=== PATIENT | male | born 1940 | race Caucasian/White ===

== ENCOUNTER 2017-04-27 12:50 | Outpatient (CLI) | payer MEDICARE, BC | END 2017-04-27 12:51 | disposition home or self-care (01) | LOC: LAB.F 12:50 | PROVIDERS: ATTEND Family Medicine | DX: E78.2 Mixed hyperlipidemia (principal); E03.9 Hypothyroidism, unspecified; R73.01 Impaired fasting glucose; R94.5 Abnormal results of liver function studies; E55.9 Vitamin D deficiency, unspecified | CPT/HCPCS: 36415; 84443 ==

== ENCOUNTER 2017-07-27 09:48 | Outpatient (CLI) | payer MEDICARE, BC ==
[2017-07-27 17:40] LABS: BILIRUBIN,URINE NEGATIVE (NEGATIVE)
[2017-07-27 17:44] LABS: BASOPHILS # (AUTO) 0.1 10^3/uL (0.0-0.1); BASOPHILS % (AUTO) 1.3 %; EOSINOPHILS # (AUTO) 0.2 10^3/uL (0.0-0.7); EOSINOPHILS % (AUTO) 3.2 %; HCT - HEMATOCRIT 43.7 % (42.0-52.0); HGB - HEMOGLOBIN 14.8 g/dL (14.0-18.0); LYMPHOCYTES # (AUTO) 2.4 10^3/uL (1.5-3.5); MEAN CORPUSCULAR HEMOGLOBIN 31.8 pg (27.0-31.0); MEAN CORPUSCULAR HGB CONC 33.9 g/dL (32.0-36.0); MEAN CORPUSCULAR VOLUME 93.9 fL (80.0-94.0); MEAN PLATELET VOLUME 9.9 fL (7.4-11.4); MONOCYTES # (AUTO) 0.5 10^3/uL (0.0-1.0); MONOCYTES % (AUTO) 9.8 %; NEUTROPHILS # (AUTO) 2.4 10^3/uL (1.5-6.6); NEUTROPHILS % (AUTO) 42.7 %; NUCLEATED RED BLOOD CELLS AUTO 0.1 /100WBC; RED BLOOD COUNT 4.65 10^6/uL (4.70-6.10); RED CELL DISTRIBUTION WIDTH 13.3 % (12.0-15.0); UNCORRECTED WHITE BLOOD COUNT 5.6 x10^3/uL; WHITE BLOOD COUNT 5.6 x10^3/uL (4.8-10.8)
[2017-07-27 17:45] LABS: UA CHARGE (STRIP ONLY) YES; UR CULTURE IF IND NOT INDICATED
[2017-07-27 18:20] LABS: CALCIUM 9.3 mg/dL (8.5-10.3); CREATININE 1.1 mg/dL (0.6-1.2)
[2017-07-27 18:34] LABS: HEMOGLOBIN A1C 0.58 g/dL
== END 2017-07-27 09:49 | disposition home or self-care (01) ==
LOC: LAB.F 09:48
PROVIDERS: ATTEND Orthopaedic Surgery
DX: Z01.812 Encounter for preprocedural laboratory examination (principal); N39.0 Urinary tract infection, site not specified; M25.562 Pain in left knee; R73.9 Hyperglycemia, unspecified; D64.9 Anemia, unspecified; M25.50 Pain in unspecified joint
CPT/HCPCS: 36415; 80048; 81001; 81003; 83036; 84466; 85025; 86708; 86803; 87086

== ENCOUNTER 2017-10-25 11:08 | Outpatient (CLI) | payer MEDICARE, BC | END 2017-10-25 11:09 | disposition home or self-care (01) | LOC: SC 11:08 | PROVIDERS: ATTEND Nurse Practitioner Family | DX: G47.33 Obstructive sleep apnea (adult) (pediatric) (principal); G47.00 Insomnia, unspecified | CPT/HCPCS: 99214; G0463; 99212 ==

== ENCOUNTER 2018-08-02 07:46 | Outpatient (CLI) | payer MEDICARE, BC ==
[2018-08-02 10:34] LABS: BUN - BLOOD UREA NITROGEN 21 mg/dL (6-20); CALCIUM 9.6 mg/dL (8.5-10.3); CARBON DIOXIDE - CO2 28 mmol/L (21-32); CHLORIDE 105 mmol/L (101-111); CHOLESTEROL 169 mg/dL; CREATININE 1.2 mg/dL (0.6-1.2); GFR - MDRD 59 (>89); GLUCOSE 109 mg/dL (70-100); SODIUM 141 mmol/L (135-145); VLDL CHOLESTEROL 19 mg/dL
[2018-08-02 11:20] LABS: CHOL/HDL RATIO 3.8 (<5.0); HDL CHOLESTEROL 45 mg/dL; LDL CHOLESTEROL,CALCULATED 105 mg/dL; LDL/HDL RATIO 2.3 (<3.6)
== END 2018-08-02 07:47 | disposition home or self-care (01) ==
LOC: LAB.F 07:46
PROVIDERS: ATTEND Internal Medicine
DX: I48.91 Unspecified atrial fibrillation (principal); E78.2 Mixed hyperlipidemia; E03.9 Hypothyroidism, unspecified
CPT/HCPCS: 36415; 80048; 80061; 83721; 84443

== ENCOUNTER 2018-11-20 13:04 | Outpatient (CLI) | payer MEDICARE, BC | END 2018-11-20 13:05 | disposition home or self-care (01) | LOC: SC 13:04 | PROVIDERS: ATTEND Nurse Practitioner Family | DX: G47.33 Obstructive sleep apnea (adult) (pediatric) (principal); G47.00 Insomnia, unspecified; R53.83 Other fatigue | CPT/HCPCS: 99214; G0463; 99212 ==

== ENCOUNTER 2019-01-22 13:16 | Outpatient (CLI) | payer MEDICARE, BC | END 2019-01-22 13:17 | disposition home or self-care (01) | LOC: SC 13:16 | PROVIDERS: ATTEND Nurse Practitioner Family | DX: G47.33 Obstructive sleep apnea (adult) (pediatric) (principal); R53.83 Other fatigue | CPT/HCPCS: 99214; G0463; 99212 ==

== ENCOUNTER 2019-04-11 08:54 | Outpatient (CLI) | payer MEDICARE, BC ==
[2019-04-11 11:06] LABS: BASOPHILS # (AUTO) 0.1 10^3/uL (0.0-0.1); BASOPHILS % (AUTO) 1.6 %; EOSINOPHILS # (AUTO) 0.3 10^3/uL (0.0-0.7); HGB - HEMOGLOBIN 15.7 g/dL (14.0-18.0); LYMPHOCYTES # (AUTO) 2.2 10^3/uL (1.5-3.5); LYMPHOCYTES % (AUTO) 41.2 %; MEAN CORPUSCULAR HEMOGLOBIN 31.3 pg (27.0-31.0); MEAN CORPUSCULAR VOLUME 92.1 fL (80.0-94.0); MEAN PLATELET VOLUME 9.6 fL (7.4-11.4); MONOCYTES # (AUTO) 0.5 10^3/uL (0.0-1.0); NEUTROPHILS # (AUTO) 2.3 10^3/uL (1.5-6.6); NEUTROPHILS % (AUTO) 43.2 %; PLT - PLATELET COUNT 211 10^3/uL (130-450); RED BLOOD COUNT 5.01 10^6/uL (4.70-6.10); RED CELL DISTRIBUTION WIDTH 13.2 % (12.0-15.0); WHITE BLOOD COUNT 5.3 x10^3/uL (4.8-10.8)
[2019-04-11 11:08] LABS: ALBUMIN 4.5 g/dL (3.2-5.5); ALBUMIN/GLOBULIN RATIO 1.6 (1.0-2.2); ALKALINE PHOSPHATASE 73 IU/L (42-121); ALT ALANINE AMINOTRANSFERASE 45 IU/L (10-60); AST ASPARTATE AMINOTRANSFERASE 35 IU/L (10-42); BILIRUBIN,TOTAL 0.9 mg/dL (0.2-1.0); BUN - BLOOD UREA NITROGEN 21 mg/dL (6-20); CALCIUM 9.6 mg/dL (8.5-10.3); CARBON DIOXIDE - CO2 24 mmol/L (21-32); CHLORIDE 103 mmol/L (101-111); CHOL/HDL RATIO 3.8 (<5.0); CHOLESTEROL 181 mg/dL; CREATININE 1.2 mg/dL (0.6-1.2); GFR - MDRD 59 (>89); GLUCOSE 127 mg/dL (70-100); HDL CHOLESTEROL 48 mg/dL; LDL CHOLESTEROL,CALCULATED 118 mg/dL; LDL/HDL RATIO 2.5 (<3.6); SODIUM 138 mmol/L (135-145); TOTAL PROTEIN 7.4 g/dL (6.7-8.2); VLDL CHOLESTEROL 15 mg/dL
== END 2019-04-11 08:55 | disposition home or self-care (01) ==
LOC: LAB.F 08:54
PROVIDERS: ATTEND Internal Medicine
DX: R53.83 Other fatigue (principal); E78.2 Mixed hyperlipidemia
CPT/HCPCS: 36415; 80053; 80061; 83721; 84443; 85025

== ENCOUNTER 2019-04-26 13:20 | Outpatient (CLI) | payer MEDICARE, BC ==
--- NOTE | 2019-04-26 14:09 | XRAY Report ---
Reason: PAIN IN LEFT SHOULDER Procedure Date: 04/26/2019 Accession Number: [id number] / [id number] Procedure: XR - Shoulder 2 View LT CPT Code: FULL RESULT: EXAM: LEFT SHOULDER RADIOGRAPHY EXAM DATE: 04/26/2019 01:40 PM. CLINICAL HISTORY: PAIN IN LEFT SHOULDER. COMPARISON: None. TECHNIQUE: 3 views. FINDINGS: Bones: Normal. No fracture or bone lesion. Joints: Unremarkable glenohumeral joint. Mild acromioclavicular joint osteoarthritis. Soft tissues: The visualized hemithorax is unremarkable. No soft tissue swelling. IMPRESSION: No acute abnormality. RADIA
== END 2019-04-26 13:21 | disposition home or self-care (01) ==
LOC: DI 13:20
PROVIDERS: ATTEND Internal Medicine
DX: M19.012 Primary osteoarthritis, left shoulder (principal)

== ENCOUNTER 2019-06-19 10:44 | Outpatient (CLI) | payer MEDICARE, BC ==
[2019-06-19 12:17] VITALS: BP 120/70
--- NOTE | 2019-06-19 12:17 | CONSULTATION NOTE ---
Information from patient questionnaire entered by Amirah Stoddard. I have reviewed and concur with the information entered by Amirah Stoddard. This document represents the service I personally performed and the decisions made by me, Natasha Bell, RN, MSN, CHEF FREN[place]. History of Present Illness Previous diagnosis: Severe, Obstructive Sleep Apnea-Hypopnea Syndrome AHI: 51 Reason for CPAP/BiPAP follow up: first compliance after device update Equipment type: CPAP Equipment obtained from: [email or web address] [facility] Mask style: Full face (changed to full face because was opening mouth during sleep. The new mask working well once found right cushion) Mask brand: Respironics Backup mask available: Yes Last cushion change: none since set up CPAP Compliance Data - Data Reviewed with Patient Average duration of nightly device use: 7.45 Compliance rate %: 100 Current pressure setting (cmH2O): 8-10 Humidity settin Heated hose settin Average residual AHI: 3.2 Average large leak: 11 mins 4 secs Subjective Patient concerns: reports: mask discomfort (He thinks it is pulled too tight. ), air blowing in eyes (intermittent initially until he gets the fit correct. ), other (The mask cushion moves with exhale intermittently). denies: aerophagia, mask leak noise, condensation in mask/hose, nasal congestion, dry mouth, nose, throat (with new full face mask, he is able to keep his mouth closed with resolution of dryness symptoms. ), epistaxis Observed to snore while using device: No On therapy, patient: reports: sleeping better, being more awake and alert during the day, more rested overall, other. denies: awakening more refreshed, drowsiness while driving Initial [place] Sleepiness Scale score: 10 Current [place] Sleepiness Scale score: 9 Review of Systems Review of systems same as previous: No Cardiovascular: reports: irregular heart rate or pulse Urinary: reports: impotence Neurological: reports: fainting or unconsciousness Ear/Nose/Throat: reports: dry mouth/throat (resolved), wisdom teeth removed Musculoskeletal: reports: joint pain, neck pain, back pain Allergies and Home Medications Known drug allergies: No Home medication list reviewed: Yes Allergy and home medication list: Zoloft 50mg tab one daily Levothyroxine Sodium 75mcg tab one daily Meloxicam 15mg tab one daily as needed Gabapentin 300mg cap two twice daily Eliquis 5mg tab one twice daily Calcium Citrate, Vit D, Magnesium, Zinc Tab one daily Vitamin D 1000IU tab one daily Fish Oil Concentrate 1000mg cap one twice daily Glucosamine Complex Tab daily as directed Red Yeast Rice Extract 600mg cap one twice daily Ocuvite-Lutein 1 cap daily Niaspan ER 500mg tab one daily in the pm Omeprazole DR 20mg cap one daily Vitamin C 500mg tab one daily Probiotic Cap one daily or as directed Physical Exam Blood Pressure: 120/70 Heart Rate: 60 O2 Saturation: 98 Height: 5 ft 10 in Weight (kg): 103.419 kg (lost 12 pounds ) Body Mass Index: 32.7 Impression and Plan 1. Obstructive Sleep Apnea-Hypopnea Syndrome, severe, with good treatment compliance and good apnea control. On CPAP therapy, there is improved sleep quality and continues to feel more rested overall. For his concerns about his mask movement during sleep,waking him, I advised changing his pressure from an autoCPAP mode to the 90% pressure used of [id number]. He also reports that the current ramp pressure is too low so I will adjust it to 6cmH20. I also showed him how he could adjust it further if needed on as shown on sample device. If the pressure change is uncomfortable then he is to contact me for further adjustment. To reduce mask salamanca from overtightening and improve mask comfort, he is to change the cushion monthly. The supply replacment list given for reference. Since he is hoping to lose more weight, I explained how continued significant weight loss could reduce his CPAP pressure requirements and symptoms to report for adjustment. I also showed him the BNI chart and goal for reducing his BMI and health benefit. The goal is to lose waist fat to reduce health risks. Patient's apnea severity and rationale for treatment to reduce apnea, improve sleep quality and reduce cardiovascular and cerebrovascular events was reviewed. I also reviewed the benefit of consistent device use of CPAP for arrhythmia, gastric reflux, depression/anxiety. Plan Change auto CPAP pressure at 10 cm H2O. Notify me if snoring with the mask or feeling that the pressure is too much or too little. Attempt to lose weight. Adjust ramp change mask cushion Return for follow-up in one year, or sooner if concerns arise. I spent 100% of this 38 minute visit face to face with the patient with greater than 50% of this was spent time counseling the patient and coordination of care.
== END 2019-06-19 10:45 | disposition home or self-care (01) ==
LOC: SC 10:44
PROVIDERS: ATTEND Nurse Practitioner Family
DX: G47.33 Obstructive sleep apnea (adult) (pediatric) (principal)
CPT/HCPCS: 99214; G0463; 99212

== ENCOUNTER 2020-01-06 08:14 | Outpatient (CLI) | payer MEDICARE, BC ==
[2020-01-06 10:16] LABS: BASOPHILS # (AUTO) 0.1 10^3/uL (0.0-0.1); BASOPHILS % (AUTO) 1.5 %; EOSINOPHILS # (AUTO) 0.2 10^3/uL (0.0-0.7); EOSINOPHILS % (AUTO) 3.7 %; HGB - HEMOGLOBIN 14.8 g/dL (14.0-18.0); LYMPHOCYTES % (AUTO) 36.9 %; MEAN CORPUSCULAR HEMOGLOBIN 31.7 pg (27.0-31.0); MEAN CORPUSCULAR HGB CONC 34.2 g/dL (32.0-36.0); MEAN CORPUSCULAR VOLUME 92.7 fL (80.0-94.0); MEAN PLATELET VOLUME 11.2 fL (7.4-11.4); MONOCYTES # (AUTO) 0.6 10^3/uL (0.0-1.0); MONOCYTES % (AUTO) 10.6 %; NEUTROPHILS # (AUTO) 2.6 10^3/uL (1.5-6.6); NEUTROPHILS % (AUTO) 47.1 %; PLT - PLATELET COUNT 225 10^3/uL (130-450); RED BLOOD COUNT 4.67 10^6/uL (4.70-6.10); RED CELL DISTRIBUTION WIDTH 12.7 % (12.0-15.0); WHITE BLOOD COUNT 5.5 x10^3/uL (4.8-10.8)
[2020-01-06 10:53] LABS: ALBUMIN 4.3 g/dL (3.2-5.5); ALBUMIN/GLOBULIN RATIO 1.6 (1.0-2.2); ALKALINE PHOSPHATASE 59 IU/L (42-121); ALT ALANINE AMINOTRANSFERASE 47 IU/L (10-60); AST ASPARTATE AMINOTRANSFERASE 30 IU/L (10-42); BILIRUBIN,TOTAL 0.7 mg/dL (0.2-1.0); BUN - BLOOD UREA NITROGEN 25 mg/dL (6-20); CALCIUM 9.2 mg/dL (8.5-10.3); CARBON DIOXIDE - CO2 28 mmol/L (21-32); CHLORIDE 104 mmol/L (101-111); CHOL/HDL RATIO 4.1 (<5.0); CHOLESTEROL 185 mg/dL; CREATININE 1.1 mg/dL (0.6-1.2); GFR - MDRD 65 (>89); GLUCOSE 113 mg/dL (70-100); HDL CHOLESTEROL 45 mg/dL; LDL CHOLESTEROL,CALCULATED 121 mg/dL; LDL/HDL RATIO 2.7 (<3.6); SODIUM 138 mmol/L (135-145); VLDL CHOLESTEROL 19 mg/dL
== END 2020-01-06 08:15 | disposition home or self-care (01) ==
LOC: LAB.S 08:14
PROVIDERS: ATTEND Internal Medicine
DX: R53.83 Other fatigue (principal); E78.2 Mixed hyperlipidemia
CPT/HCPCS: 36415; 80053; 80061; 83721; 84443; 85025

== ENCOUNTER 2020-09-04 07:15 | Outpatient (CLI) | payer MEDICARE, BC ==
[2020-09-04 15:41] LABS: BASOPHILS # (AUTO) 0.1 10^3/uL (0.0-0.1); BASOPHILS % (AUTO) 1.1 %; EOSINOPHILS # (AUTO) 0.2 10^3/uL (0.0-0.7); EOSINOPHILS % (AUTO) 2.2 %; HGB - HEMOGLOBIN 15.7 g/dL (14.0-18.0); LYMPHOCYTES # (AUTO) 2.9 10^3/uL (1.5-3.5); LYMPHOCYTES % (AUTO) 35.9 %; MEAN CORPUSCULAR HEMOGLOBIN 30.8 pg (27.0-31.0); MEAN CORPUSCULAR HGB CONC 33.1 g/dL (32.0-36.0); MEAN CORPUSCULAR VOLUME 93.3 fL (80.0-94.0); MEAN PLATELET VOLUME 12.1 fL (7.4-11.4); MONOCYTES # (AUTO) 0.7 10^3/uL (0.0-1.0); MONOCYTES % (AUTO) 8.1 %; NEUTROPHILS # (AUTO) 4.3 10^3/uL (1.5-6.6); NEUTROPHILS % (AUTO) 52.5 %; PLT - PLATELET COUNT 228 10^3/uL (130-450); RED BLOOD COUNT 5.09 10^6/uL (4.70-6.10); RED CELL DISTRIBUTION WIDTH 12.8 % (12.0-15.0); WHITE BLOOD COUNT 8.2 x10^3/uL (4.8-10.8)
[2020-09-04 15:55] LABS: ALBUMIN 4.7 g/dL (3.2-5.5); ALBUMIN/GLOBULIN RATIO 1.5 (1.0-2.2); ALKALINE PHOSPHATASE 72 IU/L (42-121); ALT ALANINE AMINOTRANSFERASE 62 IU/L (10-60); AST ASPARTATE AMINOTRANSFERASE 35 IU/L (10-42); BILIRUBIN,TOTAL 0.8 mg/dL (0.2-1.0); BUN - BLOOD UREA NITROGEN 25 mg/dL (6-20); CALCIUM 9.8 mg/dL (8.5-10.3); CARBON DIOXIDE - CO2 25 mmol/L (21-32); CHLORIDE 102 mmol/L (101-111); CHOL/HDL RATIO 4.4 (<5.0); CHOLESTEROL 211 mg/dL; CREATININE 1.1 mg/dL (0.6-1.2); GLUCOSE 123 mg/dL (70-100); HDL CHOLESTEROL 48 mg/dL; LDL CHOLESTEROL,CALCULATED 139 mg/dL; LDL/HDL RATIO 2.9 (<3.6); SODIUM 138 mmol/L (135-145); TOTAL PROTEIN 7.8 g/dL (6.7-8.2); VLDL CHOLESTEROL 24 mg/dL
== END 2020-09-04 07:16 | disposition home or self-care (01) ==
LOC: LAB.S 07:15
PROVIDERS: ATTEND Internal Medicine
DX: R53.83 Other fatigue (principal); E78.2 Mixed hyperlipidemia
CPT/HCPCS: 36415; 80053; 80061; 83721; 84443; 85025

== ENCOUNTER 2020-09-22 13:09 | Outpatient (CLI) | payer MEDICARE, BC ==
--- NOTE | 2020-09-22 14:01 | SLEEP CARE CONSULTATION ---
Information from patient questionnaire entered by Jenniffer Rod. I have reviewed and concur with the information entered by Jenniffer Rod. This document represents the service I personally performed and the decisions made by me, Lisette Baer ARNP. History of Present Illness Service Date and Time: 09/22/2020 1309 Previous diagnosis: Severe, Obstructive Sleep Apnea-Hypopnea Syndrome AHI: 51 (in 2003) Reason for follow up: three month Equipment type: CPAP Equipment obtained from: [employer] (getting supplies as needed) Mask style: Full face Backup mask available: Yes (other mask) Last cushion change: June, changed to new DME and supplies on the way Prior sleep studies: Yes Year and Where: 2003 - [facility] in [place], [place] Type of Sleep Study: Polysomnography HPI additional information: MALLIKA MO was diagnosed to have severe, AHI 51, obstructive sleep apnea- hypopnea syndrome and returned today for CPAP therapy three month follow-up. He is feeling sluggish and more tired. His PCP encouraged him to make sure his machine, etc was working well since his blood work came back with normal values. Sleep Study - Results Prior sleep studies: Yes Year and Where: 2003 - [facility] in [place], [place] CPAP Compliance Data - Data Reviewed with Patient Average duration of nightly device use: 7 hours 52 minutes Compliance rate %: 98.9 Current pressure setting (cmH2O): 10-12 Humidity settin Heated hose settin Average residual AHI: 1.7 Average large leak: 3 minutes 43 seconds Subjective Patient concerns: reports: mask discomfort (just when it leaks), mask leak noise (only when on side), condensation in mask/hose (in mask), dry mouth, nose, throat (most of the time). denies: aerophagia, air blowing in eyes, nasal congestion, epistaxis, other Observed to snore while using device: No Current pressure setting perceived as: comfortable On therapy, patient: reports: sleeping better, awakening more refreshed, being more awake and alert during the day, more rested overall. denies: drowsiness while driving Initial [place] Sleepiness Scale score: 10 (in 2014) Current [place] Sleepiness Scale score: 3 Allergies and Home Medications Drug allergies reviewed: Yes (NKDA) Home medication list reviewed: Yes (no changes) Review of Systems Review of systems same as previous: No (increasing fatigue) Physical Exam Heart Rate: 63 O2 Saturation: 97 Height: 5 ft 10 in Weight: 234 lb Body Mass Index: 33.5 BMI Classification: Obese Impression and Plan 1. Obstructive Sleep Apnea-Hypopnea Syndrome, severe, with good treatment compliance and good apnea control. On CPAP therapy, the patient has better sleep quality and is more rested overall. He has had more fatigue lately but his CPAP therapy appears to be being effective. I do not feel this is the cause of his sluggishness. He was encouraged to follow up with his PCP on the fatigue issue. He has been noting some condensation in the mask recently. His humidity setting is at 2 and the heated hose at 2. I encouraged him to increase the humidity to 4 and heated hose to 3 to try to decrease condensation and decrease oral dryness. Oral dryness can be reduced by adjusting humidity setting higher or heated hose lower or by adjusting both settings. He would also like to try a different mask as he feels the full face mask his is using is not comfortable. He would like to try the mask over the nose and use a chin strap to keep mouth closed. I will write for a mask refitting for the Dream Wisp mask. He will contact the office if this does not work out and he wants to go back to a full face mask. Patient's apnea severity and rationale for treatment to reduce apnea, improve sleep quality and reduce cardiovascular and cerebrovascular events was reviewed. I also reviewed the benefit of consistent device use of CPAP for hypertension. * Continue autoCPAP pressure at 10-12 cmH2O * Mask refitting to try Dream Wisp nasal mask * Notify me if snoring with mask or feeling that the pressure is too much or too little * Follow up with PCP for fatigue * Attempt to lose weight * Call this office if any problems using CPAP * Return for follow up in 1 year, or sooner if concerns arise Counseling Topics: Spare mask Visit Type: In Office Time Spent with Patient (minutes): 20 Provider Statement: I spent 100% of the Face to Face Visit with the patient with greater than 50% spent counseling the patient and coordination of care.
== END 2020-09-22 13:10 | disposition home or self-care (01) ==
LOC: SC 13:09
PROVIDERS: ATTEND Nurse Practitioner Family
DX: G47.33 Obstructive sleep apnea (adult) (pediatric) (principal); E66.9 Obesity, unspecified; Z68.33 Body mass index [BMI] 33.0-33.9, adult
CPT/HCPCS: 99213; G0463; 99212

== ENCOUNTER 2021-01-05 07:33 | Outpatient (CLI) | payer MEDICARE, BC | END 2021-01-05 07:34 | disposition home or self-care (01) | LOC: LAB.S 07:33 | PROVIDERS: ATTEND Internal Medicine | DX: R53.83 Other fatigue (principal) | CPT/HCPCS: 36415; 81599; 84402; 84403 ==

== ENCOUNTER 2021-08-10 08:49 | Outpatient (CLI) | payer MEDICARE, BC ==
[2021-08-10 14:54] LABS: BASOPHILS # (AUTO) 0.1 10^3/uL (0.0-0.1); BASOPHILS % (AUTO) 1.3 %; EOSINOPHILS # (AUTO) 0.2 10^3/uL (0.0-0.7); EOSINOPHILS % (AUTO) 2.9 %; HCT - HEMATOCRIT 48.8 % (42.0-52.0); HGB - HEMOGLOBIN 16.5 g/dL (14.0-18.0); LYMPHOCYTES # (AUTO) 2.3 10^3/uL (1.5-3.5); LYMPHOCYTES % (AUTO) 32.7 %; MEAN CORPUSCULAR HEMOGLOBIN 31.5 pg (27.0-31.0); MEAN CORPUSCULAR HGB CONC 33.8 g/dL (32.0-36.0); MEAN CORPUSCULAR VOLUME 93.3 fL (80.0-94.0); MEAN PLATELET VOLUME 11.7 fL (7.4-11.4); MONOCYTES # (AUTO) 0.7 10^3/uL (0.0-1.0); MONOCYTES % (AUTO) 9.7 %; NEUTROPHILS # (AUTO) 3.7 10^3/uL (1.5-6.6); NEUTROPHILS % (AUTO) 53.3 %; PLT - PLATELET COUNT 234 10^3/uL (130-450); RED BLOOD COUNT 5.23 10^6/uL (4.70-6.10); RED CELL DISTRIBUTION WIDTH 13.2 % (12.0-15.0)
[2021-08-10 15:27] LABS: ALBUMIN 4.6 g/dL (3.2-5.5); ALBUMIN/GLOBULIN RATIO 1.6 (1.0-2.2); ALKALINE PHOSPHATASE 66 IU/L (42-121); ALT ALANINE AMINOTRANSFERASE 52 IU/L (10-60); AST ASPARTATE AMINOTRANSFERASE 33 IU/L (10-42); BUN - BLOOD UREA NITROGEN 25 mg/dL (6-20); CALCIUM 9.4 mg/dL (8.5-10.3); CARBON DIOXIDE - CO2 27 mmol/L (21-32); CHLORIDE 102 mmol/L (101-111); CHOL/HDL RATIO 4.6 (<5.0); CHOLESTEROL 212 mg/dL; CREATININE 1.2 mg/dL (0.6-1.2); GFR - MDRD 58 (>89); GLUCOSE 121 mg/dL (70-100); HDL CHOLESTEROL 46 mg/dL; LDL CHOLESTEROL,CALCULATED 133 mg/dL; LDL/HDL RATIO 2.9 (<3.6); POTASSIUM 4.6 mmol/L (3.5-5.0); SODIUM 138 mmol/L (135-145); TOTAL PROTEIN 7.4 g/dL (6.7-8.2); TRIGLYCERIDES 165 mg/dL; VLDL CHOLESTEROL 33 mg/dL
[2021-08-10 15:33] LABS: THYROID STIMULATING HORMONE 3.18 uIU/mL (0.34-5.60)
== END 2021-08-10 08:50 | disposition home or self-care (01) ==
LOC: LAB.S 08:49
PROVIDERS: ATTEND Internal Medicine
DX: Z79.899 Other long term (current) drug therapy (principal); Z12.5 Encounter for screening for malignant neoplasm of prostate; E78.2 Mixed hyperlipidemia; E03.9 Hypothyroidism, unspecified
CPT/HCPCS: 36415; 80053; 80061; 84443; 85025; G0103; 83721; 84153

== ENCOUNTER 2021-10-21 07:08 | Outpatient (CLI) | payer MEDICARE, BC ==
[2021-10-21 15:02] LABS: BASOPHILS # (AUTO) 0.1 10^3/uL (0.0-0.1); BASOPHILS % (AUTO) 1.3 %; EOSINOPHILS # (AUTO) 0.2 10^3/uL (0.0-0.7); EOSINOPHILS % (AUTO) 3.8 %; HCT - HEMATOCRIT 44.6 % (42.0-52.0); HGB - HEMOGLOBIN 15.3 g/dL (14.0-18.0); LYMPHOCYTES # (AUTO) 2.4 10^3/uL (1.5-3.5); LYMPHOCYTES % (AUTO) 37.2 %; MEAN CORPUSCULAR HEMOGLOBIN 31.8 pg (27.0-31.0); MEAN CORPUSCULAR HGB CONC 34.3 g/dL (32.0-36.0); MEAN CORPUSCULAR VOLUME 92.7 fL (80.0-94.0); MEAN PLATELET VOLUME 11.8 fL (7.4-11.4); MONOCYTES # (AUTO) 0.7 10^3/uL (0.0-1.0); MONOCYTES % (AUTO) 10.3 %; NEUTROPHILS % (AUTO) 47.1 %; PLT - PLATELET COUNT 230 10^3/uL (130-450); RED BLOOD COUNT 4.81 10^6/uL (4.70-6.10); RED CELL DISTRIBUTION WIDTH 13.1 % (12.0-15.0); WHITE BLOOD COUNT 6.3 x10^3/uL (4.8-10.8)
[2021-10-21 15:26] LABS: ALBUMIN 4.4 g/dL (3.2-5.5); ALBUMIN/GLOBULIN RATIO 1.7 (1.0-2.2); ALKALINE PHOSPHATASE 66 IU/L (42-121); ALT ALANINE AMINOTRANSFERASE 47 IU/L (10-60); AST ASPARTATE AMINOTRANSFERASE 30 IU/L (10-42); BILIRUBIN,TOTAL 0.7 mg/dL (0.2-1.0); BUN - BLOOD UREA NITROGEN 22 mg/dL (6-20); CALCIUM 9.2 mg/dL (8.5-10.3); CARBON DIOXIDE - CO2 25 mmol/L (21-32); CHLORIDE 102 mmol/L (101-111); CHOL/HDL RATIO 4.2 (<5.0); CHOLESTEROL 183 mg/dL; CREATININE 1.1 mg/dL (0.6-1.2); GFR - MDRD 64 (>89); GLUCOSE 130 mg/dL (70-100); HDL CHOLESTEROL 44 mg/dL; LDL CHOLESTEROL,CALCULATED 112 mg/dL; LDL/HDL RATIO 2.5 (<3.6); POTASSIUM 4.4 mmol/L (3.5-5.0); SODIUM 138 mmol/L (135-145); TRIGLYCERIDES 135 mg/dL; VLDL CHOLESTEROL 27 mg/dL
[2021-10-21 15:33] LABS: THYROID STIMULATING HORMONE 3.93 uIU/mL (0.34-5.60)
== END 2021-10-21 07:09 | disposition home or self-care (01) ==
LOC: LAB.S 07:08
PROVIDERS: ATTEND Internal Medicine
DX: Z79.899 Other long term (current) drug therapy (principal); E78.2 Mixed hyperlipidemia; E03.9 Hypothyroidism, unspecified
CPT/HCPCS: 36415; 80053; 80061; 83721; 84443; 85025

== ENCOUNTER 2022-02-07 08:51 | Outpatient (CLI) | payer MEDICARE, BC ==
[2022-02-07 14:21] LABS: BASOPHILS # (AUTO) 0.1 10^3/uL (0.0-0.1); BASOPHILS % (AUTO) 1.6 %; EOSINOPHILS # (AUTO) 0.2 10^3/uL (0.0-0.7); EOSINOPHILS % (AUTO) 2.5 %; HCT - HEMATOCRIT 46.4 % (42.0-52.0); HGB - HEMOGLOBIN 15.9 g/dL (14.0-18.0); LYMPHOCYTES # (AUTO) 2.5 10^3/uL (1.5-3.5); MEAN CORPUSCULAR HEMOGLOBIN 31.4 pg (27.0-31.0); MEAN CORPUSCULAR HGB CONC 34.3 g/dL (32.0-36.0); MEAN CORPUSCULAR VOLUME 91.5 fL (80.0-94.0); MEAN PLATELET VOLUME 11.5 fL (7.4-11.4); MONOCYTES # (AUTO) 0.7 10^3/uL (0.0-1.0); MONOCYTES % (AUTO) 10.2 %; NEUTROPHILS # (AUTO) 3.2 10^3/uL (1.5-6.6); NEUTROPHILS % (AUTO) 48.6 %; PLT - PLATELET COUNT 233 10^3/uL (130-450); RED BLOOD COUNT 5.07 10^6/uL (4.70-6.10); RED CELL DISTRIBUTION WIDTH 12.6 % (12.0-15.0); WHITE BLOOD COUNT 6.7 x10^3/uL (4.8-10.8)
[2022-02-07 14:38] LABS: CALCIUM 9.8 mg/dL (8.5-10.3); CARBON DIOXIDE - CO2 28 mmol/L (21-32); CHLORIDE 102 mmol/L (101-111); GLUCOSE 113 mg/dL (70-100); POTASSIUM 4.8 mmol/L (3.5-5.0); SODIUM 138 mmol/L (135-145)
[2022-02-07 14:51] LABS: THYROID STIMULATING HORMONE 2.35 uIU/mL (0.34-5.60)
[2022-02-07 17:48] LABS: ALBUMIN 4.5 g/dL (3.2-5.5); ALBUMIN/GLOBULIN RATIO 1.8 (1.0-2.2); ALKALINE PHOSPHATASE 67 IU/L (42-121); ALT ALANINE AMINOTRANSFERASE 60 IU/L (10-60); AST ASPARTATE AMINOTRANSFERASE 35 IU/L (10-42); BILIRUBIN,TOTAL 0.9 mg/dL (0.2-1.0); BUN - BLOOD UREA NITROGEN 27 mg/dL (6-20); CHOL/HDL RATIO 4.3 (<5.0); CHOLESTEROL 199 mg/dL; CREATININE 1.4 mg/dL (0.6-1.2); GFR - MDRD 49 (>89); HDL CHOLESTEROL 46 mg/dL; LDL CHOLESTEROL,CALCULATED 138 mg/dL; TRIGLYCERIDES 75 mg/dL; VLDL CHOLESTEROL 15 mg/dL
== END 2022-02-07 08:52 | disposition home or self-care (01) ==
LOC: LAB.S 08:51
PROVIDERS: ATTEND Internal Medicine
DX: E78.2 Mixed hyperlipidemia (principal); Z79.899 Other long term (current) drug therapy; E03.9 Hypothyroidism, unspecified
CPT/HCPCS: 36415; 80053; 80061; 83721; 84443; 85025

== ENCOUNTER 2022-02-10 10:29 | Outpatient (CLI) | payer MEDICARE, BC ==
[2022-02-10 11:09] VITALS: BP 141/92
--- NOTE | 2022-02-10 11:09 | SLEEP CARE CONSULTATION ---
Information from patient questionnaire entered by Rodrigo Brown MA. I have reviewed and concur with the information entered by Rodrigo Brown MA. This document represents the service I personally performed and the decisions made by , Lisette Baer ARNP. History of Present Illness Service Date and Time: 02/10/2022 1029 Previous diagnosis: Severe, Obstructive Sleep Apnea-Hypopnea Syndrome AHI: 51 (in 2003) Reason for follow up: annual Equipment type: CPAP Equipment obtained from: [employer] (getting supplies as needed) Mask style: Full face Mask brand: Respironics (Dreamwear) Backup mask available: Yes (old mask) Last cushion change: 2 weeks- month Prior sleep studies: Yes Year and Where: 2003 - [place], [place] Type of Sleep Study: Polysomnography HPI additional information: MALLIKA MO was diagnosed to have severe, AHI 51, obstructive sleep apnea- hypopnea syndrome and returned today for CPAP therapy annual follow-up. Sleep Study - Results Type of Sleep Study: Polysomnography Prior sleep studies: Yes Year and Where: 2003 - [place], [place] CPAP Compliance Data - Data Reviewed with Patient Average duration of nightly device use: 7 hours 52 minutes Compliance rate %: 97.2 Current pressure setting (cmH2O): 10-12 Humidity settin Heated hose settin Average residual AHI: 2.7 Average large leak: 7 minutes 9 seconds Subjective Missed days of use due to: reports: family emergency Patient concerns: reports: dry mouth, nose, throat (dry mouth, ). denies: aerophagia, mask discomfort, air blowing in eyes, mask leak noise, condensation in mask/hose, nasal congestion, epistaxis Observed to snore while using device: No Current pressure setting perceived as: comfortable On therapy, patient: reports: sleeping better, awakening more refreshed, being more awake and alert during the day, more rested overall. denies: drowsiness while driving Initial [place] Sleepiness Scale score: 10 (in 2013) Current [place] Sleepiness Scale score: 4 (02/01) Allergies and Home Medications Home medication list reviewed: Yes (no changes) Allergy and home medication list: Allergies No Known Drug Allergies Allergy (Verified 10/29/14 08:53) Review of Systems Review of systems same as previous: Yes (no changes) Physical Exam Vital signs obtained and entered by: ANMOL BYNUM Blood Pressure: 141/92 (LEFT, PULSE 66, RESP 16, ) Cuff size: wrist Heart Rate: 67 O2 Saturation: 97 (N95) Height: 5 ft 10 in Weight: 230 lb Weight change since last visit: 4 lb loss Body Mass Index: 33.0 BMI Classification: Obese Impression and Plan 1. Obstructive Sleep Apnea-Hypopnea Syndrome, severe, with good treatment compliance and good apnea control. On CPAP therapy, the patient has better sleep quality and is more rested overall. He has been regularly having a dry mouth. He did start using a chinstrap with his full face mask and has had a lot less air leaking around his mask. Oral dryness can be reduced by adjusting humidity setting higher or heated hose lower or by adjusting both settings. Verbal instructions given on how to change humidity and heated hose settings with rationale explaining why to change. He voiced understanding. Patient has a Dreamstation. Patient has already registered their device for the recall. Patient denies any black particles seen in machine or hoses, any unusual odors coming from device. If patient is not able to sleep due to waking up choking, gasping for air or other respiratory distress that they may decide to continue using it until it is either replaced or repaired. Patient is monitoring machine for any changes. Patient voiced understanding and agreement with plan. Patient's apnea severity and rationale for treatment to reduce apnea, improve sleep quality and reduce cardiovascular and cerebrovascular events was reviewed. I also reviewed the benefit of consistent device use of CPAP for hypertension. 2. Obesity, unspecified. Patient has lost weight. Currently patients BMI is 33.0. Obesity increases the risk of apnea, CPAP pressure requirements and overall health risks especially cardiovascular and diabetes. Thus patient is advised to continue to try to lose weight. Weight loss can be done with reducing portion size, reducing refined foods and balancing content with vegetables, fruit and whole grain foods. In addition, patient encouraged to get regular exercise. He has been exercising regularly and reducing his portions with good results of losing weight. * Continue auto CPAP pressure at 10-12 cmH2O * Notify me if snoring with mask or feeling that the pressure is too much or too little * Continue to try to lose weight * Call this office if any problems using CPAP * Return for follow up in 1 year, or sooner if concerns arise Counseling Topics: Spare mask, Weight loss health impact Visit Type: In Office Time Spent with Patient (minutes): 21 Provider Statement: I spent 100% of the Face to Face Visit with the patient with greater than 50% spent counseling the patient and coordination of care.
== END 2022-02-10 10:30 | disposition home or self-care (01) ==
LOC: SC 10:29
PROVIDERS: ATTEND Nurse Practitioner Family
DX: G47.33 Obstructive sleep apnea (adult) (pediatric) (principal); E66.9 Obesity, unspecified; Z68.33 Body mass index [BMI] 33.0-33.9, adult
CPT/HCPCS: 99213; G0463; 99212

== ENCOUNTER 2022-02-14 10:39 | Outpatient (CLI) | payer MEDICARE, BC ==
[2022-02-14] MEDS ORDERED: IOVERSOL 320 100 ML VIAL IVP ONE ×2 (10:53→12:59)
[2022-02-14] MEDS ORDERED: IOVERSOL 320 50 ML VIAL ONE (10:53)
[2022-02-14] MEDS ORDERED: IOVERSOL 320 50 ML VIAL PO ONE (12:59)
--- NOTE | 2022-02-14 14:48 | CT Report ---
PROCEDURE: Abdomen/Pelvis W INDICATIONS: ABD PAIN CONTRAST: IV CONTRAST: Optiray 320 ml: 100 PO CONTRAST: Optiray 320 ml50 TECHNIQUE: After the administration of IV and oral contrast, 5 mm thick sections acquired from the diaphragms to the symphysis. 5 mm thick coronal and sagittal reformats were acquired. For radiation dose reducti on, the following was used: automated exposure control, adjustment of mA and/or kV according to edmond ent size. COMPARISON: None. FINDINGS: Image quality: Excellent. ABDOMEN: Lung bases: Lung bases are clear. Heart size is normal. Transvenous cardiac leads are present. Solid organs: Liver is enlarged and demonstrates diffusely decreased density. No focal hepatic mass. Spleen is within normal limits. Gallbladder is grossly unremarkable Biliary system is non dilated. Pancreas enhances normally. No adrenal nodules. Kidneys demonstrate normal size and enhancement, w ithout hydronephrosis. Peritoneum and bowel: There is a rounded, 45 mm diameter low-density focus within the proximal ascen ding colon, which could represent atypical stool versus a underlying mass. Bowel loops demonstrate ot herwise normal wall thickness and caliber. No free fluid or air. Nodes and vessels: No retroperitoneal or mesenteric adenopathy by size criteria. Aorta and inferior vena cava are normal in size. Miscellaneous: No ventral hernias. PELVIS: Genitourinary: Bladder wall thickness is normal. Miscellaneous: No inguinal hernias or adenopathy. Bones: No suspicious bony lesions. No vertebral body compression fractures. IMPRESSION: 1. Possible right colonic mass. Further assessment with endoscopy is recommended. 2. Appendix not seen. No evidence of appendicitis. 3. Hepatic steatosis. Reviewed by: López Montaño MD on 02/14/2022 2:47 PM PDT Approved by: López Montaño MD on 02/14/2022 2:47 PM PDT Station ID: [id number]
== END 2022-02-14 10:40 | disposition home or self-care (01) ==
LOC: DI 10:39
PROVIDERS: ATTEND Internal Medicine
DX: K76.0 Fatty (change of) liver, not elsewhere classified (principal); R10.9 Unspecified abdominal pain
CPT/HCPCS: 74177; Q9967

== ENCOUNTER 2022-03-14 08:12 | Day surgery (SDC) | payer MEDICARE, BC ==
[~2022-03-14 08:12] MED LIST: LACTATED RINGERS 1,000 ML IV ONE
[2022-03-14] MEDS ORDERED: PROPOFOL 500 MG/50 ML 500 MG/50 ML VIAL ONE (09:05)
--- NOTE | 2022-03-14 09:08 | ANESTHESIA ---
Pre-Anesthesia VS, & Labs - Diagnosis screening - Procedure colonoscopy Vital Signs: Temp Pulse Resp BP Pulse Ox 36.8 C 70 21 133/83 H 97 03/14/22 08:28 03/14/22 08:28 03/14/22 08:28 03/14/22 08:28 03/14/22 08:28 Height: 5 ft 10 in Weight (kg): 104.4 kg Body Mass Index: 33.0 BMI Classification: Obese - NPO Other (4am prep) Home Medications and Allergies Home Medications: Ambulatory Orders Apixaban [Eliquis] 1 tab ORAL BID 03/11/22 Ascorbic Acid [Vitamin C] 1 tab ORAL DAILY 03/11/22 B Complex W-C No.20/Folic Acid [Wescaps Capsule] 1 mg PO DAILY 03/11/22 Calcium Carb/Mag Ox/Zinc Sulf [Elt-Yav-Sgoz 334-134-5 mg Tab] 1 tab ORAL DAILY 03/11/22 Lactobacillus Combination No.4 [Probiotic] 1 each PO DAILY 03/11/22 Lutein 6 mg PO DAILY 03/11/22 Sertraline [Zoloft] 50 mg PO DAILY 03/11/22 flaxseed oiL [Flaxseed Oil] 1,000 mg PO DAILY 03/11/22 traMADol [Ultram] 50 mg PO PRN PRN 03/11/22 Zinc Citrate [Zinc] 16.7 mg PO DAILY 03/14/22 Levothyroxine [Synthroid] 75 mcg ORAL DAILY 10/29/14 Omeprazole [PriLOSEC] 20 mg ORAL DAILY 10/29/14 Apixaban [Eliquis] 1 tab ORAL BID 03/11/22 Ascorbic Acid [Vitamin C] 1 tab ORAL DAILY 03/11/22 B Complex W-C No.20/Folic Acid [Wescaps Capsule] 1 mg PO DAILY 03/11/22 Calcium Carb/Mag Ox/Zinc Sulf [Iny-Tpw-Fcbo 334-134-5 mg Tab] 1 tab ORAL DAILY 03/11/22 Lactobacillus Combination No.4 [Probiotic] 1 each PO DAILY 03/11/22 Lutein 6 mg PO DAILY 03/11/22 Sertraline [Zoloft] 50 mg PO DAILY 03/11/22 flaxseed oiL [Flaxseed Oil] 1,000 mg PO DAILY 03/11/22 traMADol [Ultram] 50 mg PO PRN PRN 03/11/22 Zinc Citrate [Zinc] 16.7 mg PO DAILY 03/14/22 Allergies/Adverse Reactions: Allergies Allergy/AdvReac Type Severity Reaction Status Date / Time No Known Drug Allergies Allergy Verified 03/14/22 08:52 Anes History & Medical History - Anesthetic History Anesthesia Complications: reports: No previous complications - Medical History Cardiovascular: reports: Atrial fibrillation Pulmonary: reports: Sleep apnea, CPAP use Gastrointestinal: reports: GERD, Ulcers, Hepatitis Urinary: reports: None Musculoskeletal: reports: Osteoarthritis, Chronic back pain, Other Endocrine/Autoimmune: reports: HyPOthyroidism Skin: reports: None - Surgical History General: reports: Colonoscopy, EGD Eyes Ears Nose Throat (EENT): reports: Cataracts Cardiothoracic: reports: Pacemaker Urologic: reports: Prostatic surgery Neurologic: reports: Other Orthopedic: reports: Knee replacement Exam General: Alert, Oriented x3 Dental: WNL Mouth Opening: Greater than 4 Fingerbreadths Neck Mobility: Normal Mallampati classification: II Thyromental Distance: greater than 6 cm Respiratory: Lungs clear Cardiovascular: Regular rate (paced) Mental/Cognitive Status: Alert/Oriented X3 Plan Anesthesia Type: Total IV Consent for Procedure(s) Verified and Reviewed: Yes Code Status: Attempt Resuscitation ASA classification: 3-Severe systemic disease Is this case an emergency?: No
[2022-03-14] MEDS ORDERED: LIDOCAINE-MPF 2% 5 ML VIAL ONE (09:25)
[2022-03-14] MEDS ORDERED: LACTATED RINGERS 1,000 ML IV ONE (09:46)
[2022-03-14 10:02] VITALS: BP 107/68
--- NOTE | 2022-03-14 11:08 | ANESTHESIA POST OP EVALUATION ---
Anesthesia Post Eval - Post Anesthesia Eval Vitals: Last Vital Signs Temp 36.8 C 03/14/22 09:47 Pulse 65 03/14/22 10:00 Resp 17 03/14/22 10:00 BP 107/68 03/14/22 10:00 Pulse Ox 97 03/14/22 10:00 CV Function Including HR & BP: Stable Pain Control: Satisfactory Nausea & Vomiting: Negative Mental Status: Baseline Respiratory Status: Airway Patent Hydration Status: Satisfactory Anesthesia Complications: None
== END 2022-03-14 08:13 | disposition home or self-care (01) ==
LOC: SDS 08:12
PROVIDERS: ATTEND Surgery
PROC: 0DBL8ZX Excision of Transverse Colon, Via Natural or Artificial Opening Endoscopic, Diagnostic (ICD-10-PCS; 2022-03-14)
PROC: 0DBK8ZX Excision of Ascending Colon, Via Natural or Artificial Opening Endoscopic, Diagnostic (ICD-10-PCS; principal; 2022-03-14 09:15)
DX: R93.3 Abnormal findings on diagnostic imaging of other parts of digestive tract (principal); D12.2 Benign neoplasm of ascending colon; D12.3 Benign neoplasm of transverse colon; K64.8 Other hemorrhoids; E66.9 Obesity, unspecified; G47.33 Obstructive sleep apnea (adult) (pediatric); Z68.33 Body mass index [BMI] 33.0-33.9, adult; Z80.0 Family history of malignant neoplasm of digestive organs; Z95.0 Presence of cardiac pacemaker
CPT/HCPCS: 45380; J7120

== ENCOUNTER 2022-11-28 15:25 | Outpatient (CLI) | payer MEDICARE, BC ==
--- NOTE | 2022-11-29 12:59 | XRAY Report ---
PROCEDURE: Foot 2 View RT INDICATIONS: Right foot pain TECHNIQUE: Three views of the foot were acquired. COMPARISON: None. FINDINGS: Pes planus deformity. Mild hallux valgus and moderate 1st MTP osteoarthritis. Moderate 1st interphala ngeal osteoarthritis. 3rd, 4th, and 5th hammertoe deformities with mild interphalangeal osteoarthriti s. No fracture. No suspicious bone lesion. IMPRESSION: Pes planus deformity and degenerative changes with no acute finding. Reviewed by: Lukasz Santoro MD on 11/29/2022 12:58 PM PST Approved by: Lukasz Santoro MD on 11/29/2022 12:58 PM PST Station ID: [id number]
== END 2022-11-28 15:26 | disposition home or self-care (01) ==
LOC: DI.S 15:25
PROVIDERS: ATTEND Registered Nurse
DX: M19.071 Primary osteoarthritis, right ankle and foot (principal); M21.41 Flat foot [pes planus] (acquired), right foot

== ENCOUNTER 2023-02-09 12:44 | Outpatient (CLI) | payer MEDICARE, BC ==
[2023-02-09 13:23] VITALS: BP 122/72
--- NOTE | 2023-02-09 13:23 | SLEEP CARE CONSULTATION ---
Information from patient questionnaire entered by Alice Quinn. I have reviewed and concur with the information entered by Alice Quinn. This document represents the service I personally performed and the decisions made by me, Lisette Baer ARNP. History of Present Illness Service Date and Time: 02/09/2023 1244 Previous diagnosis: Severe, Obstructive Sleep Apnea-Hypopnea Syndrome AHI: 51 (in 2003) Reason for follow up: annual (LAST SEEN 01/2022) Equipment type: CPAP (Dreamstation 2) Equipment obtained from: [employer] (getting supplies as needed) Mask style: Full face Mask brand: Respironics (Dreamwear) Backup mask available: No (will keep old mask when replaced) Last cushion change: 1-2 weeks Prior sleep studies: Yes Year and Where: 2003 - [place], [place] Type of Sleep Study: Polysomnography HPI additional information: MALLIKA MO was diagnosed to have severe, AHI 51, obstructive sleep apnea- hypopnea syndrome and returned today for CPAP therapy annual follow-up. Sleep Study - Results Type of Sleep Study: Polysomnography Prior sleep studies: Yes Year and Where: 2003 - [place], [place] CPAP Compliance Data - Data Reviewed with Patient Average duration of nightly device use: 7 HRS 41 MINS 56MINS Compliance rate %: 97.2 (08/11/22-02/06/23; 175/180 days used) Current pressure setting (cmH2O): 10-12 Average residual AHI: 3.5 Central apnea: 0.6 Obstructive apnea: 0.6 Hypopnea: 2.3 Average large leak: 42 minutes 31 secs Subjective Patient concerns: reports: dry mouth, nose, throat (dry mouths), other (would like to change to nasal mask). denies: aerophagia, mask discomfort, air blowing in eyes, mask leak noise, condensation in mask/hose, nasal congestion, epistaxis Observed to snore while using device: No (occasionally yes) Current pressure setting perceived as: comfortable On therapy, patient: reports: sleeping better, awakening more refreshed, being m ore awake and alert during the day, more rested overall. denies: drowsiness while driving Initial Frontier Sleepiness Scale score: 10 (in 2013) Current Frontier Sleepiness Scale score: 4 (02/09/23) Allergies and Home Medications Known drug allergies: No Drug allergies reviewed: Yes Home medication list reviewed: Yes (no changes) Allergy and home medication list: Allergies No Known Drug Allergies Allergy (Verified 02/08/23 15:49) Review of Systems Review of systems same as previous: Yes (no changes) Physical Exam Vital signs obtained and entered by: ALICE Douglas MA Blood Pressure: 122/72 (LEFT ARM) Cuff size: regular Heart Rate: 65 O2 Saturation: 98 Height: 5 ft 10 in Weight: 235 lb 6.4 oz Body Mass Index: 33.7 BMI Classification: Obese Impression and Plan 1. Obstructive Sleep Apnea-Hypopnea Syndrome, severe, with good treatment compliance and good apnea control. On CPAP therapy, the patient has better sleep quality and is more rested overall. Patient has significant improvement of their sleep apnea and is satisfied with current CPAP therapy. Patient still gets some oral dryness and has been adjusting his humidity as needed. He is getting tired of using his Dreamwear full face mask and would like to try a nasal mask. I will write for a mask fitting with his supply update. We will follow up with him in a year. Patient's apnea severity and rationale for treatment to reduce apnea, improve sleep quality and reduce cardiovascular and cerebrovascular events was reviewed. I also reviewed the benefit of consistent device use of CPAP for hypertension. 2. Obesity, unspecified. Currently patients BMI is 33.7. Obesity increases the risk of apnea, CPAP pressure requirements and overall health risks especially cardiovascular and diabetes. Thus patient is advised to lose weight. * Continue auto CPAP pressure at 10-12 cmH2O * Mask refitting for nasal mask * Update supplies * Notify me if snoring with mask or feeling that the pressure is too much or too little * Attempt to lose weight * Call this office if any problems using CPAP * Return for follow up in 1 year, or sooner if concerns arise Counseling Topics: Spare mask, Weight loss health impact Visit Type: In Office Time Spent with Patient (minutes): 20 Provider Statement: I spent 100% of the Face to Face Visit with the patient with greater than 50% spent counseling the patient and coordination of care.
== END 2023-02-09 12:45 | disposition home or self-care (01) ==
LOC: SC 12:44
PROVIDERS: ATTEND Nurse Practitioner Family
DX: G47.33 Obstructive sleep apnea (adult) (pediatric) (principal); E66.9 Obesity, unspecified; Z68.33 Body mass index [BMI] 33.0-33.9, adult
CPT/HCPCS: 99213; G0463; 99212

== ENCOUNTER 2023-07-05 07:05 | Outpatient (CLI) | payer MEDICARE, BC ==
[2023-07-05 14:30] LABS: BASOPHILS # (AUTO) 0.1 10^3/uL (0.0-0.1); BASOPHILS % (AUTO) 2.2 %; EOSINOPHILS # (AUTO) 0.2 10^3/uL (0.0-0.7); EOSINOPHILS % (AUTO) 3.7 %; HCT - HEMATOCRIT 47.9 % (42.0-52.0); HGB - HEMOGLOBIN 15.7 g/dL (14.0-18.0); LYMPHOCYTES # (AUTO) 2.4 10^3/uL (1.5-3.5); LYMPHOCYTES % (AUTO) 44.4 %; MEAN CORPUSCULAR HEMOGLOBIN 31.3 pg (27.0-31.0); MEAN CORPUSCULAR HGB CONC 32.8 g/dL (32.0-36.0); MEAN CORPUSCULAR VOLUME 95.4 fL (80.0-94.0); MEAN PLATELET VOLUME 12.5 fL (7.4-11.4); MONOCYTES # (AUTO) 0.6 10^3/uL (0.0-1.0); MONOCYTES % (AUTO) 10.5 %; NEUTROPHILS # (AUTO) 2.1 10^3/uL (1.5-6.6); NEUTROPHILS % (AUTO) 38.8 %; PLT - PLATELET COUNT 188 10^3/uL (130-450); RED BLOOD COUNT 5.02 10^6/uL (4.70-6.10); RED CELL DISTRIBUTION WIDTH 13.4 % (12.0-15.0); WHITE BLOOD COUNT 5.4 x10^3/uL (4.8-10.8)
[2023-07-05 14:52] LABS: THYROID STIMULATING HORMONE 6.03 uIU/mL (0.34-5.60)
[2023-07-05 16:56] LABS: ALBUMIN 4.4 g/dL (3.2-5.5); ALBUMIN/GLOBULIN RATIO 1.9 (1.0-2.2); ALKALINE PHOSPHATASE 72 IU/L (42-121); ALT ALANINE AMINOTRANSFERASE 38 IU/L (10-60); AST ASPARTATE AMINOTRANSFERASE 29 IU/L (10-42); BILIRUBIN,TOTAL 0.8 mg/dL (0.2-1.0); BUN - BLOOD UREA NITROGEN 18 mg/dL (6-20); CALCIUM 9.9 mg/dL (8.5-10.3); CARBON DIOXIDE - CO2 27 mmol/L (21-32); CHLORIDE 105 mmol/L (101-111); CHOL/HDL RATIO 3.9 (<5.0); CHOLESTEROL 153 mg/dL; CREATININE 1.3 mg/dL (0.6-1.3); GFR - MDRD 53 (>89); GLUCOSE 128 mg/dL (74-104); HDL CHOLESTEROL 39 mg/dL; LDL CHOLESTEROL,CALCULATED 94 mg/dL; LDL/HDL RATIO 2.4 (<3.6); POTASSIUM 4.5 mmol/L (3.5-4.5); SODIUM 138 mmol/L (135-145); TOTAL PROTEIN 6.7 g/dL (6.4-8.9); TRIGLYCERIDES 100 mg/dL (48-352); VLDL CHOLESTEROL 20 mg/dL
== END 2023-07-05 07:06 | disposition home or self-care (01) ==
LOC: LAB.S 07:05
PROVIDERS: ATTEND Registered Nurse
DX: Z79.899 Other long term (current) drug therapy (principal); Z13.220 Encounter for screening for lipoid disorders; Z13.29 Encounter for screening for other suspected endocrine disorder
CPT/HCPCS: 36415; 80053; 80061; 83721; 84439; 84443; 85025

== ENCOUNTER 2024-05-15 07:41 | Outpatient (CLI) | payer MEDICARE, BC ==
[2024-05-15 14:50] LABS: BASOPHILS # (AUTO) 0.1 10^3/uL (0.0-0.1); BASOPHILS % (AUTO) 1.7 %; EOSINOPHILS # (AUTO) 0.2 10^3/uL (0.0-0.7); EOSINOPHILS % (AUTO) 3.6 %; HCT - HEMATOCRIT 47.2 % (42.0-52.0); LYMPHOCYTES # (AUTO) 2.1 10^3/uL (1.5-3.5); LYMPHOCYTES % (AUTO) 35.8 %; MEAN CORPUSCULAR HEMOGLOBIN 30.9 pg (27.0-31.0); MEAN CORPUSCULAR HGB CONC 33.9 g/dL (32.0-36.0); MEAN CORPUSCULAR VOLUME 91.3 fL (80.0-94.0); MEAN PLATELET VOLUME 11.8 fL (7.4-11.4); MONOCYTES # (AUTO) 0.6 10^3/uL (0.0-1.0); MONOCYTES % (AUTO) 10.1 %; NEUTROPHILS # (AUTO) 2.9 10^3/uL (1.5-6.6); NEUTROPHILS % (AUTO) 48.6 %; PLT - PLATELET COUNT 234 10^3/uL (130-450); RED BLOOD COUNT 5.17 10^6/uL (4.70-6.10); WHITE BLOOD COUNT 5.9 x10^3/uL (4.8-10.8)
[2024-05-15 15:57] LABS: ALBUMIN 4.6 g/dL (3.2-5.5); ALBUMIN/GLOBULIN RATIO 1.9 (1.0-2.2); ALKALINE PHOSPHATASE 73 IU/L (42-121); ALT ALANINE AMINOTRANSFERASE 35 IU/L (10-60); AST ASPARTATE AMINOTRANSFERASE 22 IU/L (10-42); BILIRUBIN,TOTAL 0.6 mg/dL (0.2-1.0); BUN - BLOOD UREA NITROGEN 22 mg/dL (6-20); CARBON DIOXIDE - CO2 30 mmol/L (21-32); CHLORIDE 106 mmol/L (101-111); CHOL/HDL RATIO 4.1 (<5.0); CHOLESTEROL 173 mg/dL; CREATININE 1.2 mg/dL (0.6-1.3); GFR - MDRD 58 (>89); GLUCOSE 146 mg/dL (74-104); HDL CHOLESTEROL 42 mg/dL; LDL CHOLESTEROL,CALCULATED 115 mg/dL; LDL/HDL RATIO 2.7 (<3.6); POTASSIUM 4.4 mmol/L (3.5-4.5); SODIUM 140 mmol/L (135-145); TRIGLYCERIDES 79 mg/dL (48-352); VLDL CHOLESTEROL 16 mg/dL
== END 2024-05-15 07:42 | disposition home or self-care (01) ==
LOC: LAB.S 07:41
PROVIDERS: ATTEND Registered Nurse
DX: Z13.228 Encounter for screening for other metabolic disorders (principal); Z13.220 Encounter for screening for lipoid disorders; Z13.29 Encounter for screening for other suspected endocrine disorder; Z13.0 Encounter for screening for diseases of the blood and blood-forming organs and certain disorders involving the immune mechanism
CPT/HCPCS: 36415; 80053; 80061; 83721; 84443; 85025

== ENCOUNTER 2024-06-28 12:03 | Outpatient (CLI) | payer MEDICARE, BC ==
[2024-06-28 12:20] LABS: ESTIMATED AVERAGE GLUCOSE 131 mg/dL (70-100); HEMOGLOBIN A1c% 6.2 % (4.27-6.07)
[2024-06-28 12:26] LABS: CALCIUM 9.7 mg/dL (8.5-10.3); CREATININE 1.2 mg/dL (0.6-1.3); POTASSIUM 4.4 mmol/L (3.5-4.5)
== END 2024-06-28 12:04 | disposition home or self-care (01) ==
LOC: LAB 12:03
PROVIDERS: ATTEND Registered Nurse
DX: R73.9 Hyperglycemia, unspecified (principal)
CPT/HCPCS: 36415; 80048; 83036